=== PATIENT | male | born 1955 | race Caucasian/White ===

== ENCOUNTER 2024-01-12 06:34 | Day surgery (SDC) | payer MEDICARE, OTHER ==
[2024-01-10 14:11] VITALS: BMI 25.1
[2024-01-12] MEDS ORDERED: Acetylcysteine 800 MG/4 ML VIAL ONE (06:55)
[2024-01-12] MEDS ORDERED: Nitroglycerin 50 MG/250 ML BOT 250 ML ONE (07:17)
[2024-01-12] MEDS ORDERED: Verapamil 5 MG/2 ML VIAL ONE (07:17)
[2024-01-12] MEDS ORDERED: Heparin 10,000 UNITS/ 10 ML VIAL ONE (07:17)
[2024-01-12] MEDS ORDERED: Adenosine 6 mg (2 mL) VIAL ONE (07:22)
[2024-01-12] MEDS ORDERED: fentaNYL 50 mcg/mL 1 mL Vial ONE (07:22)
[2024-01-12] MEDS ORDERED: Atropine Sulfate 1 mg/1 ml Vial ONE (07:22)
[2024-01-12] MEDS ORDERED: Midazolam HCl 2 mg/2 ml Vial ONE (07:22)
[2024-01-12] MEDS ORDERED: Lidocaine 1% (PF) 30 ML VIAL ONE (07:23)
[2024-01-12 07:42] VITALS: BP 132/80; TEMP 97.8
[2024-01-12 07:57] LABS: INR-International Normal Ratio 1.1
[2024-01-12] MEDS ORDERED: TICAGRELOR 90 MG TABLET ONE (08:17)
[2024-01-12] MEDS ORDERED: Iopamidol 300 61% 100 ML VIAL FS ONE (09:16)
== END 2024-01-12 13:40 | disposition home or self-care (01) ==
LOC: CSHSDC 06:34
PROVIDERS: ATTEND Specialist
PROC: 4A023N8 Measurement of Cardiac Sampling and Pressure, Bilateral, Percutaneous Approach (ICD-10-PCS; principal; 2024-01-12)
PROC: B215YZZ Fluoroscopy of Left Heart using Other Contrast (ICD-10-PCS; 2024-01-12)
DX: I25.10 Atherosclerotic heart disease of native coronary artery without angina pectoris (principal); R94.39 Abnormal result of other cardiovascular function study; I50.30 Unspecified diastolic (congestive) heart failure; I10 Essential (primary) hypertension; E78.2 Mixed hyperlipidemia; G47.30 Sleep apnea, unspecified; M19.90 Unspecified osteoarthritis, unspecified site; E11.9 Type 2 diabetes mellitus without complications; Z79.899 Other long term (current) drug therapy; Z79.84 Long term (current) use of oral hypoglycemic drugs; Z98.890 Other specified postprocedural states; Z88.5 Allergy status to narcotic agent
CPT/HCPCS: 85347 ×2; 85610; 92978; 93458; C1753; C1769; C1887; C1894; J0461; J1644; J2001; J2250; J3010; Q9967; 99152; 99153; J0153